=== PATIENT | female | born 1975 | race Caucasian/White ===

== ENCOUNTER → 2016-09-27 | Outpatient (CLI) | payer OTHER ==
[2016-09-27 19:43] LABS: Basophils % (A) 0 %; CHCM 30.5; Eosinophils # (A) 0.2 k/uL (0-0.7); Eosinophils % (A) 2 %; HCT 40.4 % (34.0-46.0); HDW 2.57; HGB 12.5 gm/dL (11.4-16.0); Hypochromasia Moderate; Luc # (Auto) 0.12; Luc % (Auto) 1; Lymphocytes # (A) 2.3 k/uL (1.0-4.8); Lymphocytes % (A) 25 %; MCH 27.3 pg (25.0-35.0); MCHC 30.9 g/dL (31.0-37.0); MCV 88.5 fL (80.0-100.0); Mean Platelet Volume 8.2; Monocytes # (A) 0.6 k/uL (0-1.0); Monocytes % (A) 6 %; Neutrophils # (A) 6.1 k/uL (1.3-7.7); Neutrophils % (A) 65 %; RBC 4.56 m/uL (3.80-5.40); RDW 14.5 % (11.5-15.5); WBC 9.4 k/uL (3.8-10.6); WBC (Perox) 9.56
[2016-09-27 19:47] LABS: ALT 31 U/L (9-52); AST 13 U/L (14-36); Alkaline Phosphatase 92 U/L (38-126); Anion Gap 9 mmol/L; Blood Urea Nitrogen 11 mg/dL (7-17); Calcium 9.1 mg/dL (8.4-10.2); Carbon Dioxide 22 mmol/L (22-30); Chloride 110 mmol/L (98-107); Cholesterol 228 mg/dL (<200); Glucose 85 mg/dL (74-99); HDL Cholesterol 79 mg/dL (40-60); Non-African American GFR(MDRD) >60 (>60 ml/min/1.73 sqM); Potassium 4.2 mmol/L (3.5-5.1); Sodium 141 mmol/L (137-145); Total Bilirubin 0.3 mg/dL (0.2-1.3); Total Protein 7.1 g/dL (6.3-8.2); Triglycerides 279 mg/dL (<150)
[2016-09-27 20:31] LABS: Vitamin B12 330 pg/mL (239-931)
== END ==
LOC: MMGSC 11:41
PROVIDERS: ATTEND Family Medicine
DX: Z00.00 Encounter for general adult medical examination without abnormal findings (principal); R53.83 Other fatigue
CPT/HCPCS: 36415; 80053; 80061; 82306; 82607; 84439; 84443; 84480; 85025

== ENCOUNTER 2016-12-01 22:52 | Emergency (ER) | payer OTHER ==
[2016-12-01 23:18] VITALS: RESP 18
[2016-12-01] MEDS ORDERED: KETOROLAC 60 MG/2 ML VIAL IM STA (23:49)
[2016-12-01] MEDS ORDERED: Acetaminophen-Codeine 300-30mg TAB PO STA (23:49)
--- NOTE | 2016-12-02 00:23 | ED ---
General Adult HPI - General Chief complaint: Fall Stated complaint: Fall/Back Pain Time Seen by Provider: 12/01/16 23:41 Source: patient, RN notes reviewed, old records reviewed Mode of arrival: ambulatory Limitations: no limitations - History of Present Illness Initial comments: This is a 41-year-old female in the ER for evaluation regarding back pain. Patient had injury of her lower back about 4 days ago. Pain ever since. She is able to walk, pain is better when she stands up. No neurological deficit no loss of bowel or bladder. Patient is to being intoxicated at the time, going on a slide landing on her back and causing her pain in her sacral area. Pain is a persistent ever since, mild improvement with Motrin - Related Data Home Medications Medication Instructions Recorded Confirmed Atorvastatin [Lipitor] 10 mg PO HS 10/21/14 12/01/16 Citalopram Hydrobromide [CeleXA] 40 mg PO HS 10/21/14 12/01/16 Levothyroxine Sodium [Synthroid] 200 mcg PO QAM 10/21/14 12/01/16 buPROPion HCL [Wellbutrin XL] 300 mg PO QAM 10/21/14 12/01/16 Loratadine [Claritin] 10 mg PO QAM 07/26/15 12/01/16 Ferrous Sulfate [Feosol] 325 mg PO QAM 07/29/15 12/01/16 Ergocalciferol [Vitamin D2] 50,000 unit PO TU 04/24/16 12/01/16 Ibuprofen [Motrin] 800 mg PO Q6HR PRN 04/24/16 12/01/16 Pantoprazole Sodium [Protonix] 40 mg PO BID 04/24/16 12/01/16 Previous Rx's Medication Instructions Recorded Ciprofloxacin HCl [Cipro] 500 mg PO Q12HR #14 tablet 04/24/16 Hydrocodone/Acetaminophen [Jupiter 1 each PO Q6HR PRN #20 tab 04/24/16 5-325] metroNIDAZOLE [Flagyl] 500 mg PO TID #21 tab 04/24/16 predniSONE 50 mg PO DAILY #5 tab 04/24/16 Allergies Allergy/AdvReac Type Severity Reaction Status Date / Time No Known Allergies Allergy Verified 12/01/16 23:17 Review of Systems ROS Statement: Those systems with pertinent positive or pertinent negative responses have been documented in the HPI. ROS Other: All systems not noted in ROS Statement are negative. Past Medical History Past Medical History: GERD/Reflux, Hyperlipidemia, Thyroid Disorder Additional Past Medical History / Comment(s): Irritable bowel syndrome, history of C. diff colitis 2012, hypothyroid, stress incontinence History of Any Multi-Drug Resistant Organisms: C-DIFF Date of last positivie culture/infection: 2012 MDRO Source:: stool Past Surgical History: Section, Cholecystectomy, Orthopedic Surgery, Tonsillectomy Additional Past Surgical History / Comment(s): right knee meniscus repair and ACL Past Anesthesia/Blood Transfusion Reactions: No Reported Reaction Past Psychological History: Anxiety, Depression Smoking Status: Never smoker Past Alcohol Use History: Rare Past Drug Use History: None Reported - Past Family History Mother Family Medical History: Diabetes Mellitus Father Family Medical History: Cancer, Diabetes Mellitus, Hypertension Additional Family Medical History / Comment(s): CA:skin General Exam Limitations: no limitations General appearance: alert, in no apparent distress Head exam: Present: atraumatic, normocephalic, normal inspection Eye exam: Present: normal appearance, PERRL, EOMI. Absent: scleral icterus, conjunctival injection, periorbital swelling ENT exam: Present: normal exam, mucous membranes moist Neck exam: Present: normal inspection. Absent: tenderness, meningismus, lymphadenopathy Respiratory exam: Present: normal lung sounds bilaterally. Absent: respiratory distress, wheezes, rales, rhonchi, stridor Cardiovascular Exam: Present: regular rate, normal rhythm, normal heart sounds. Absent: systolic murmur, diastolic murmur, rubs, gallop, clicks GI/Abdominal exam: Present: soft, normal bowel sounds. Absent: distended, tenderness, guarding, rebound, rigid Extremities exam: Present: normal inspection, full ROM, normal capillary refill. Absent: tenderness, pedal edema, joint swelling, calf tenderness Back exam: Present: normal inspection, other (back pain , tenderness diffuse , dec ROM) Neurological exam: Present: alert, oriented X3, CN II-XII intact Psychiatric exam: Present: normal affect, normal mood Skin exam: Present: warm, dry, intact, normal color. Absent: rash Course Vital Signs 12/01/16 23:14 Temperature 97.9 F Pulse Rate 95 Respiratory 18 Rate Blood Pressure 146/70 O2 Sat by Pulse 100 Oximetry Medical Decision Making - Medical Decision Making 41 female the ER for evaluation. Patient is here for reevaluation of back pain. That pain worse with movement. Patient did have positive trauma, x-ray negative for fracture. Patient given pain control at home, continued rest, heat in the morning and stretching - Radiology Data Radiology results: report reviewed (X-ray lumbosacral spine is negative for traumatic injury), image reviewed Disposition Clinical Impression: Fall, Lumbar contusion Disposition: HOME SELF-CARE Condition: Good Instructions: Contusion in Adults (ED), Lower Back Exercises (ED), Back Pain ( ED) Referrals: Neela Lama MD [Primary Care Provider] - 1-2 days
[2016-12-02 00:41] VITALS: BP 135/82; PULSE 83; TEMP 98.2
--- NOTE | 2016-12-02 01:04 | XR ---
EXAM: XR Lumbar Spine, 4 or 5 Views CLINICAL HISTORY: Reason: Pain TECHNIQUE: Frontal, lateral and oblique views of the lumbar spine. COMPARISON: No relevant prior studies available. FINDINGS: Vertebrae: Vertebral body heights and alignment are maintained without acute fracture seen. Disc spaces: Disc space heights are maintained without significant degenerative changes seen. Soft tissues: Right upper quadrant clips suggest prior cholecystectomy. IMPRESSION: No acute osseous abnormality or listhesis is seen. Note, nondisplaced fractures may initially be inapparent, and short-term follow-up could be considered if concern or symptoms persist.
== END 2016-12-02 00:40 | disposition home or self-care (01) ==
LOC: EC 22:52
DX: S30.0XXA Contusion of lower back and pelvis, initial encounter (principal); E78.5 Hyperlipidemia, unspecified; E03.9 Hypothyroidism, unspecified; F32.9 Major depressive disorder, single episode, unspecified; K21.9 Gastro-esophageal reflux disease without esophagitis; Z79.899 Other long term (current) drug therapy; W19.XXXA Unspecified fall, initial encounter
CPT/HCPCS: 99283; 96372; 72110; J1885

== ENCOUNTER 2017-05-23 18:28 | Emergency (ER) | payer OTHER ==
[2017-05-23 18:56] VITALS: BP 153/71; PULSE 95; RESP 17; TEMP 98.8
[2017-05-23] MEDS ORDERED: HYDROcodone/APAP 5-325MG 1 EACH TAB PO STA (19:19)
--- NOTE | 2017-05-23 19:40 | ED ---
Lower Extremity Injury HPI - General Chief Complaint: Extremity Injury, Lower Stated Complaint: Fall/knee pain Time Seen by Provider: 05/23/17 19:11 Source: patient Mode of arrival: ambulatory Limitations: no limitations - History of Present Illness Initial Comments: 42-year-old female patient presents to the emergency department today for evaluation of right knee pain. Patient states that approximately 3 days ago she slipped and fell on the ice, landing on her right knee. She states that she is having pain encircling the whole knee, which worsens when she attempts to flex the knee. She states that she is able to have a however is very painful. She states that she does have a history of previous injury to the knee with a meniscus tear. States that she feels the knee is swollen. States she has been taking ibuprofen however it is not helping for her pain. She describes the pain as severe. She denies any numbness or tingling in the lower leg. She denies hitting her head or losing consciousness during the fall. Denies any neck or back pain. Denies any other injuries.Patient denies any headache, neck pain, back pain, chest pain, shortness of breath, dizziness, weakness, abdominal pain, nausea, vomiting, or difficulties with bowel movements or urination. - Related Data Home Medications Medication Instructions Recorded Confirmed Atorvastatin [Lipitor] 10 mg PO HS 10/21/14 12/01/16 Citalopram Hydrobromide [CeleXA] 40 mg PO HS 10/21/14 12/01/16 Levothyroxine Sodium [Synthroid] 200 mcg PO QAM 10/21/14 12/01/16 buPROPion HCL [Wellbutrin XL] 300 mg PO QAM 10/21/14 12/01/16 Loratadine [Claritin] 10 mg PO QAM 07/26/15 12/01/16 Ferrous Sulfate [Feosol] 325 mg PO QAM 07/29/15 12/01/16 Ergocalciferol [Vitamin D2] 50,000 unit PO TU 04/24/16 12/01/16 Ibuprofen [Motrin] 800 mg PO Q6HR PRN 04/24/16 12/01/16 Pantoprazole Sodium [Protonix] 40 mg PO BID 04/24/16 12/01/16 Previous Rx's Medication Instructions Recorded Ciprofloxacin HCl [Cipro] 500 mg PO Q12HR #14 tablet 04/24/16 Hydrocodone/Acetaminophen [Monon 1 each PO Q6HR PRN #20 tab 04/24/16 5-325] metroNIDAZOLE [Flagyl] 500 mg PO TID #21 tab 04/24/16 predniSONE 50 mg PO DAILY #5 tab 04/24/16 HYDROcodone/APAP 5-325MG [Monon 1 tab PO Q6HR PRN #30 tab 12/02/16 5-325] Naproxen [Naprosyn] 500 mg PO Q12HR #30 tab 12/02/16 Acetaminophen-Codeine 300-30mg 1 tab PO Q6H PRN #15 tablet 05/23/17 [Tylenol #3] Allergies Allergy/AdvReac Type Severity Reaction Status Date / Time No Known Allergies Allergy Verified 05/23/17 18:56 Review of Systems ROS Statement: Those systems with pertinent positive or pertinent negative responses have been documented in the HPI. ROS Other: All systems not noted in ROS Statement are negative. Past Medical History Past Medical History: GERD/Reflux, Hyperlipidemia, Thyroid Disorder Additional Past Medical History / Comment(s): Irritable bowel syndrome, history of C. diff colitis 2012, hypothyroid, stress incontinence History of Any Multi-Drug Resistant Organisms: C-DIFF Date of last positivie culture/infection: 2012 MDRO Source:: stool Past Surgical History: Section, Cholecystectomy, Orthopedic Surgery, Tonsillectomy Additional Past Surgical History / Comment(s): right knee meniscus repair and ACL Past Anesthesia/Blood Transfusion Reactions: No Reported Reaction Past Psychological History: Anxiety, Depression Smoking Status: Never smoker Past Alcohol Use History: Rare Past Drug Use History: None Reported - Past Family History Mother Family Medical History: Diabetes Mellitus Father Family Medical History: Cancer, Diabetes Mellitus, Hypertension Additional Family Medical History / Comment(s): CA:skin General Exam Limitations: no limitations General appearance: alert, in no apparent distress, other (This is a well- developed, well-nourished adult female patient in no acute distress. Vital signs upon presentation To 98.8F, pulse 95, respirations 17, blood pressure 153 /71, pulse ox 100% on room air.) Eye exam: Present: normal appearance, PERRL, EOMI. Absent: scleral icterus, conjunctival injection, periorbital swelling ENT exam: Present: normal exam, normal oropharynx, mucous membranes moist Neck exam: Present: normal inspection, full ROM, other (Nontender, no step-off, no deformity to firm midline palpation of the posterior cervical spine. Full range of motion without pain or limitation.). Absent: tenderness, meningismus, lymphadenopathy Respiratory exam: Present: normal lung sounds bilaterally. Absent: respiratory distress, wheezes, rales, rhonchi, stridor Cardiovascular Exam: Present: regular rate, normal rhythm, normal heart sounds. Absent: systolic murmur, diastolic murmur, rubs, gallop, clicks GI/Abdominal exam: Present: soft, normal bowel sounds. Absent: distended, tenderness, guarding, rebound, rigid Extremities exam: Present: full ROM (Full range of motion of her increased pain with full flexion.), tenderness (Tenderness over the anterior right knee, tenderness to the posterior right knee.), normal capillary refill, other (Mild swelling to the right knee. No evidence of ecchymosis. Skin is pink, warm, and dry. Cap refills less than 3 seconds. Pedal and posttibial pulses are 2+ and equal bilaterally.). Absent: pedal edema, joint swelling, calf tenderness Neurological exam: Present: alert, oriented X3, CN II-XII intact Psychiatric exam: Present: normal affect, normal mood Skin exam: Present: warm, dry, intact, normal color. Absent: rash Course Vital Signs 05/23/17 18:54 Temperature 98.8 F Pulse Rate 95 Respiratory 17 Rate Blood Pressure 153/71 O2 Sat by Pulse 100 Oximetry Medical Decision Making - Medical Decision Making 42-year-old female patient presented to the emergency department today for evaluation of right knee pain after a fall accident 3 days ago. Physical examination did reveal some minor swelling to the right knee. Patient did have full range of motion, reported increased pain with full flexion. Distal pulses are intact. Skin was pink, warm, and dry. X-ray was obtained of the knee and showed no acute abnormalities. Patient was placed any immobilizer. She is instructed to follow-up with orthopedics for reevaluation in one to 2 days. Patient has seen Dr. Cooper [facility] in the past and requests to be referred there again. I did give her this information and discharge instructions she'll be given Tylenol No. 3 with codeine for pain control and instructed to continue taking ibuprofen. She is instructed to return here immediate he should her symptoms worsen, change, or if she develops any new symptoms. She verbalizes understanding and agrees with this plan. - Radiology Data Radiology results: report reviewed, image reviewed 3 views of the right knee show bones and joints and soft tissues are unremarkable. Impression is by Dr. Oralia Gardner. Disposition Clinical Impression: Right knee pain Disposition: HOME SELF-CARE Condition: Good Instructions: Knee Pain (ED) Additional Instructions: Wear knee immobilizer for comfort and support. Rest, ice, elevate the right knee. Take medications as directed. Follow-up with orthopedics as soon as possible. Return here immediately for any new, worsening, or concerning symptoms. Prescriptions: Acetaminophen-Codeine 300-30mg [Tylenol #3] 1 tab PO Q6H PRN #15 tablet PRN Reason: Pain Referrals: Neela Lama MD [Primary Care Provider] - 1-2 days Javier Burks MD [STAFF PHYSICIAN] - 1-2 days Time of Disposition: 20:30
[2017-05-23] MEDS ORDERED: KETOROLAC 30 MG/ML 1 ML VIAL IM STA (20:11)
--- NOTE | 2017-05-23 20:27 | XR ---
PROCEDURE: XR knee complete RT, 3 views DATE AND TIME: 05/23/2017 7:37 PM REFERRING PHYSICIAN: Joan Mazariegos CLINICAL INDICATION: [facility], Pain TECHNIQUE: Department protocol. COMPARISON: 07/12/2013 FINDINGS: Bones and joints and soft tissues are unremarkable. IMPRESSION: Negative examination.
== END 2017-05-23 20:37 | disposition home or self-care (01) ==
LOC: EC 18:28
DX: M25.561 Pain in right knee (principal); M79.89 Other specified soft tissue disorders; K21.9 Gastro-esophageal reflux disease without esophagitis; E03.9 Hypothyroidism, unspecified; E78.5 Hyperlipidemia, unspecified; F41.9 Anxiety disorder, unspecified; F32.9 Major depressive disorder, single episode, unspecified; Z98.890 Other specified postprocedural states; Z79.899 Other long term (current) drug therapy; W00.0XXA Fall on same level due to ice and snow, initial encounter
CPT/HCPCS: 73562; 99283; 96372; L1830; J1885